=== PATIENT | female | born 1950 | race Caucasian/White ===

== ENCOUNTER 2019-03-10 00:18 | Emergency (ER) | payer OTHER ==
--- NOTE | 2019-03-10 00:19 | ER Report ---
History and Physical Time Seen By MD: 00:15 HPI/ROS CHIEF COMPLAINT: Mid back pain 2 days HISTORY OF PRESENT ILLNESS: 68-year-old female traveling [place] been traveling in a car for several days. She notes her back began to hurt 2 days ago. She recalls no specific injury. Patient notes increased pain and spasm. Tonight aggravated by breathing. Patient notes no fever, chills or shortness of breath. Patient denies history of heart disease. Patient denies leg swelling or calf pain. Patient's pain is aggravated by movement of her thoracic spine. Patient denies dysuria. Patient has a history of osteoporosis on preventative medication. She also has autoimmune urticaria. She is unable to take NSAIDs because tongue swelling. REVIEW OF SYSTEMS: Respiratory: No cough, no dyspnea. Cardiovascular: No chest pain, no palpitations. Gastrointestinal: No vomiting, no abdominal pain. Musculoskeletal: As above Allergies: Coded Allergies: ibuprofen (Verified Allergy, Severe, "SWOLLEN TONGUE", 03/10/19) Home Meds Active Scripts Methocarbamol (ROBAXIN-750) 750 Mg Tablet, 1 TAB PO TID PRN for muscle spasm relief, #20 Prov:RALPH BORJA DO 03/10/19 Ondansetron 4 Mg Odt (ONDANSETRON 4 MG ODT) 4 Mg Tab.rapdis, 4 MG PO Q6H PRN for NAUSEA/VOMITING, #12 TAB Prov:RALPH BORJA DO 03/10/19 Hydromorphone Hcl (DILAUDID) 2 Mg Tablet, 2 MG PO Q4H PRN for PAIN, #15 Prov:RALPH BORJA DO 03/10/19 Reviewed Nurses Notes: Yes Old Medical Records Reviewed: Yes Constitutional Vital Sign - Last 24 Hours 03/10/19 00:23 Temp 98.1 Pulse 71 Resp 18 B/P (MAP) 162/87 Pulse Ox 94 O2 Delivery Room Air Physical Exam General Appearance: The patient is alert, has no immediate need for airway protection and no current signs of toxicity. Vital signs stable, afebrile, pulse ox normal, moderate distress HEENT: Pupils equal and round no injection. TMs normal, oropharynx without redness or exudate Respiratory: Chest is non tender, lungs are clear to auscultation. Cardiac: regular rate and rhythm Gastrointestinal: Abdomen is soft and non tender, no masses, bowel sounds normal. Musculoskeletal: Neck: Neck is supple and non tender. Back: There is some tenderness in the midthoracic lower region. There is no redness, no rash, no tenderness or spasm. Extremities have full range of motion and are non tender. No edema, no calf tenderness Skin: No rashes or lesions. DIFFERENTIAL DIAGNOSIS: After history and physical exam differential diagnosis was considered for back pain including but not limited to muscular pain, herniated disc, spine fracture, intra-abdominal causes and urinary tract inf ection. Additionally,chest pain including but not limited to myocardial ischemia, pericarditis pulmonary embolus, chest wall pain, pleural inflammation and pulmonary infectious causes. Medical Decision Making Data Points Result Diagram: 03/10/19 0136 03/10/19 0136 Laboratory Hematology Test 03/10/19 01:36 White Blood Count 6.3 k/uL (4.5-11.0) Red Blood Count 4.00 M/uL (4.17-5.56) L Hemoglobin 13.2 g/dL (12.0-16.0) Hematocrit 38.6 % (34.0-47.0) Mean Corpuscular Volume 96.5 fL (80.0-96.0) H Mean Corpuscular Hemoglobin 33.0 pg (26.0-33.0) Mean Corpuscular Hemoglobin Concent 34.2 g/dL (32.0-36.0) Red Cell Distribution Width 12.3 % (11.5-14.5) Platelet Count 172 K/uL (150-450) Mean Platelet Volume 8.4 fL (7.2-11.1) Neutrophils (%) (Auto) 53.5 % (39.4-72.5) Lymphocytes (%) (Auto) 31.7 % (17.6-49.6) Monocytes (%) (Auto) 10.6 % (4.1-12.4) Eosinophils (%) (Auto) 3.1 % (0.4-6.7) Basophils (%) (Auto) 1.1 % (0.3-1.4) Nucleated RBC Relative Count (auto) 0.0 /100WBC Neutrophils # (Auto) 3.4 K/uL (2.0-7.4) Lymphocytes # (Auto) 2.0 K/uL (1.3-3.6) Monocytes # (Auto) 0.7 K/uL (0.3-1.0) Eosinophils # (Auto) 0.2 K/uL (0.0-0.5) Basophils # (Auto) 0.1 K/uL (0.0-0.1) Nucleated RBC Absolute Count (auto) 0.00 K/uL Erythrocyte Sedimentation Rate 23 mm/HOUR (0-30) Chemistry Test 03/10/19 01:36 Sodium Level 138 mmol/L (137-145) Potassium Level 3.7 mmol/L (3.5-5.0) Chloride Level 103 mmol/L (98-107) Carbon Dioxide Level 27 mmol/L (22-31) Blood Urea Nitrogen 13 mg/dl (7-18) Creatinine 0.70 mg/dl (0.52-1.04) Glomerular Filtration Rate Calc > 60.0 Random Glucose 108 mg/dl (75-110) Calcium Level 9.5 mg/dl (8.4-10.2) Total Bilirubin 0.4 mg/dl (0.2-1.3) Aspartate Amino Transf (AST/SGOT) 53 U/L (0-35) Alanine Aminotransferase (ALT/SGPT) 84 U/L (0-56) Alkaline Phosphatase 341 U/L (0-126) Troponin I < 0.012 ng/ml Total Protein 7.7 g/dl (6.3-8.2) Albumin 4.2 g/dl (3.5-5.0) Amylase Level 70 U/L (0-110) Lipase 220 U/L (23-300) Coagulation Test 03/10/19 01:36 D-Dimer Quantitative (PE/DVT) 0.28 ug/ml (0-0.50) Urinalysis Test 03/10/19 00:38 Urine Color Colorless Urine Clarity Clear Urine pH 7.0 pH (4.8-9.5) Urine Specific [place] 1.005 Urine Protein Negative mg/dL (NEGATIVE) Urine Glucose (UA) Negative mg/dL (NEGATIVE) Urine Ketones Negative mg/dL (NEGATIVE) Urine Blood Negative (NEGATIVE) Urine Nitrite Negative (NEGATIVE) Urine Bilirubin Negative (NEGATIVE) Urine Urobilinogen Negative mg/dL (0.2-1.9) Urine Leukocyte Esterase Negative (NEGATIVE) Urine RBC <1 /HPF (0-2/HPF) Urine WBC 1 /HPF (0-5/HPF) Urine Squamous Epithelial Cells None /LPF (</=FEW) Urine Bacteria Negative /HPF (NONE-FEW) Urine Mucus None /HPF (NONE-FEW) EKG/Imaging EKG Interpretation 12 lead EK 134 Rhythm: normal sinus rhythm [place]: normal QRS: normal ST segments: normal, no evidence of ischemia, no old EKGs for comparison Imaging X-ray: Two-view thoracic spine was obtained. I viewed the images myself on the PACS system. My interpretation of the images is: No fracture no dislocation or malalignment, no compression fracture. The radiologist interpretation had no clinically significant variation from this interpretation. Results: CT scan of the chest, abdomen and pelvis with IV contrast was obtained. The results of the study are CT of the chest, abdomen, and pelvis with contrast: Indication: Severe lower thoracic pain. Technique: Helical CT was performed through the chest, abdomen, and pelvis following IV contrast enhancement with 75 cc of Isovue-370. Multiplanar reconstructions are reviewed. One of the following dose optimization techniques was utilized in the performance of this exam: Automated exposure control; adjustment of the mA and/or kV according to the patient's size; or use of an iterative reconstruction technique. Specific details can be referenced in the facility's radiology CT exam operational policy. Comparison: Plain radiographs of the thoracic spine from earlier the same day. Findings: Lungs: There is a calcified granuloma in the right lower lobe. Mild linear atelectasis is observed at both bases. No parenchymal consolidation, volume loss, or mass is identified. Pleural spaces: There is no evidence of effusion, focal pleural thickening, calcification, soft tissue mass, or pneumothorax. Mediastinum/retroperitoneum: There is no evidence of soft tissue mass, lymph node enlargement, or fluid collection. Small calcified lymph nodes are present in the mediastinum, consistent with chronic granulomatous disease. The heart and pericardial soft tissues appear unremarkable. There is mild atherosclerotic calcification in the aortic arch and proximal abdominal aorta. There are no signs of aortic aneurysm or dissection in the thorax or abdomen. Liver: Normal in size, shape, and density. The venous structures appear unremarkable. Gallbladder and biliary tree: The gallbladder is normal in size and homogeneous in density. The bile ducts are not dilated. Pancreas: Normal in size, shape, and density. There are no signs of peripancreatic inflammation or fluid. Spleen: Normal in size, shape, and density. Adrenal glands: Within normal limits. Kidneys: Normal in size, shape, and density. There are no signs of urinary tract calculus or obstructive uropathy. Intestinal structures: There are postoperative changes in the distal colon. There are no signs of intestinal obstruction, focal dilatation, soft tissue mass, or inflammatory changes. Urinary bladder: Homogeneous and unremarkable. Pelvic structures: The uterus is absent. There is no evidence of mass, fluid, or inflammation in the pelvis. Ascites or fluid collections: None seen. Skeletal structures: There are mild degenerative changes in the thoracic and lumbar spine. No fracture, compression, or acute skeletal deformity is identified. No destructive skeletal lesions are identified. There is a small sclerotic focus at the anterolateral and of the right sixth rib, probably benign. There are no signs of bone destruction or expansion. IMPRESSION: No acute abnormality is identified in the chest, abdomen, or pelvis. The study was read by the radiologist. I viewed the images myself on the PACS system. ED Course/Re-evaluation Clinical Indication for ER IV: Hydration, IV Access ED Course Patient was admitted to an examination room. H&P was done. The differential diagnoses was considered. Patient with acute midthoracic back pain after riding in a car for several days. She recalls no specific traumatic injury. She's had never had back pain like this before. It's spreading from her back into her chest in the nose causing increased pain with breathing. She denies dysuria. A urinalysis performed which is unremarkable. Thoracic spine x-rays showed no compression fracture. Patient continued to have significant pain despite medication. A peripheral IV was established. Diagnostic laboratory studies were sent off. Patient has a normal troponin. D-dimer and white count. Her alkaline phosphatase and LFTs are mildly elevated. A CT scan of the chest, abdomen and pelvis is performed to rule out occult pathology. There were no significant findings on the CAT scan. Patient be discharged home on Dilaudid and Robaxin.. Patient advised to follow-up with her primary care doctor upon returning to [place]. 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 She develops tongue swelling with consumption of NSAIDs. Decision to Disposition Date: Mar 10, 2019 Decision to Disposition Time: 03:49 Depart Departure Latest Vital Signs Vital Signs Date Time Temp Pulse Resp B/P (MAP) Pulse Ox O2 Delivery O2 Flow Rate FiO2 03/10/19 00:23 98.1 71 18 162/87 94 Room Air Impression: Primary Impression: Thoracic back pain Additional Impressions: Elevated serum alkaline phosphatase level Abnormal liver function test Condition: Improved Disposition: HOME OR SELF-CARE New Scripts Methocarbamol (ROBAXIN-750) 750 Mg Tablet 1 TAB PO TID PRN for muscle spasm relief, #20 Prov: RALPH BORJA DO 03/10/19 Ondansetron 4 Mg Odt (ONDANSETRON 4 MG ODT) 4 Mg Tab.rapdis 4 MG PO Q6H PRN for NAUSEA/VOMITING, #12 TAB Prov: RALPH BORJA DO 03/10/19 Hydromorphone Hcl (DILAUDID) 2 Mg Tablet 2 MG PO Q4H PRN for PAIN, #15 Prov: RALPH BORJA DO 03/10/19 Patient Instructions: Thoracic Back Strain (ED) Additional Instructions: Apply heating pad to your back to the affected area Follow-up with your primary care doctor upon returning home Problem Qualifiers Primary Impression: Thoracic back pain Chronicity: acute Back pain laterality: midline Qualified Codes: M54.6 - Pain in thoracic spine RALPH BORJA DO Mar 10, 2019 00:19
[2019-03-10] MEDS ORDERED: ACET/HYDROC 5/325MG TH ER ONLY 2 TAB/BOTTLE PO ONE (00:25)
[2019-03-10] MEDS ORDERED: METHOCARBAMOL 500 MG TAB PO ONE (00:25)
[2019-03-10] MEDS ORDERED: APAP/HYDROCODONE 325/5 TAB PO ONE (00:25)
[2019-03-10] MEDS ORDERED: ONDANSETRON 4 MG ODT TABDP SL ONE (01:05)
[2019-03-10] MEDS ORDERED: fentaNYL CITR 100 MCG/2 ML AMP IVP ONE (01:25)
[2019-03-10] MEDS ORDERED: NS(*) 0.9% 1000 ML BAG 1,000 ML IV ONE (01:30)
[2019-03-10 01:57] LABS: PLATELET COUNT, AUTOMATED 172 K/uL (150-450)
--- NOTE | 2019-03-10 01:58 | RADIOLOGY IMAGING REPORT ---
FACILITY: [facility] [place] PATIENT NAME: Meagan Fabian : 1950 MR: [id number] V: [id number] EXAM DATE: ORDERING PHYSICIAN: RALPH BORJA TECHNOLOGIST: Location: [facility] Patient: Meagan Fabian : 1950 Visit/Account:[id number] Date of Sevice: 03/10/2019 THORACIC SPINE: Indication: Persistent pain. Technique: Frontal and lateral views were obtained. Comparison: None available. Findings: There is no evidence of fracture, subluxation, or compression deformity. There is minimal l evoscoliosis. There are no signs of disc space narrowing or osteophyte formation. There is uniform mi neralization. No paraspinal soft tissue abnormalities are identified. IMPRESSION: Negative thoracic spine. Report Dictated By: Carson Jane MD at 03/10/2019 1:48 AM Report E-Signed By: Carson Jane MD at 03/10/2019 1:50 AM WSN:[id number]
[2019-03-10] MEDS ORDERED: IOPAMIDOL 76% 100 ML INFUS BTL 100 ML ONE (02:33)
[2019-03-10] MEDS ORDERED: HYDROMORPHONE HCL 1 MG/ML SYRINGE IVP ONE (03:20)
--- NOTE | 2019-03-10 03:45 | RADIOLOGY IMAGING REPORT ---
FACILITY: [facility] - [place] PATIENT NAME: Meagan Fabian : 1950 MR: [id number] V: [id number] EXAM DATE: ORDERING PHYSICIAN: RALPH BORJA TECHNOLOGIST: Location: [facility] [place] Patient: Meagan Fabian : 1950 Visit/Account:[id number] Date of Sevice: 03/10/2019 CT of the chest, abdomen, and pelvis with contrast: Indication: Severe lower thoracic pain. Technique: Helical CT was performed through the chest, abdomen, and pelvis following IV contrast enha ncement with 75 cc of Isovue-370. Multiplanar reconstructions are reviewed. One of the following dose optimization techniques was utilized in the performance of this exam: Autom ated exposure control; adjustment of the mA and/or kV according to the patient's size; or use of an i terative reconstruction technique. Specific details can be referenced in the facility's radiology CT exam operational policy. Comparison: Plain radiographs of the thoracic spine from earlier the same day. Findings: Lungs: There is a calcified granuloma in the right lower lobe. Mild linear atelectasis is observed at both bases. No parenchymal consolidation, volume loss, or mass is identified. Pleural spaces: There is no evidence of effusion, focal pleural thickening, calcification, soft tissu e mass, or pneumothorax. Mediastinum/retroperitoneum: There is no evidence of soft tissue mass, lymph node enlargement, or flu id collection. Small calcified lymph nodes are present in the mediastinum, consistent with chronic gr anulomatous disease. The heart and pericardial soft tissues appear unremarkable. There is mild atherosclerotic calcification in the aortic arch and proximal abdominal aorta. There ar e no signs of aortic aneurysm or dissection in the thorax or abdomen. Liver: Normal in size, shape, and density. The venous structures appear unremarkable. Gallbladder and biliary tree: The gallbladder is normal in size and homogeneous in density. The bile ducts are not dilated. Pancreas: Normal in size, shape, and density. There are no signs of peripancreatic inflammation or fl uid. Spleen: Normal in size, shape, and density. Adrenal glands: Within normal limits. Kidneys: Normal in size, shape, and density. There are no signs of urinary tract calculus or obstruct marcin uropathy. Intestinal structures: There are postoperative changes in the distal colon. There are no signs of int estinal obstruction, focal dilatation, soft tissue mass, or inflammatory changes. Urinary bladder: Homogeneous and unremarkable. Pelvic structures: The uterus is absent. There is no evidence of mass, fluid, or inflammation in the pelvis. Ascites or fluid collections: None seen. Skeletal structures: There are mild degenerative changes in the thoracic and lumbar spine. No fractur e, compression, or acute skeletal deformity is identified. No destructive skeletal lesions are identi fied. There is a small sclerotic focus at the anterolateral and of the right sixth rib, probably to gn. There are no signs of bone destruction or expansion. IMPRESSION: No acute abnormality is identified in the chest, abdomen, or pelvis. Report Dictated By: Carson Jane MD at 03/10/2019 3:12 AM Report E-Signed By: Carson Jane MD at 03/10/2019 3:37 AM WSN:[id number]
[2019-03-10] MEDS ORDERED: ONDANSETRON 4 MG ODT TH SL ONE (03:55)
[2019-03-10] MEDS ORDERED: HYDROmorphone 2 MG TAB TH 2 TAB/BOTTLE PO ONE (03:55)
[2019-03-10] MEDS ORDERED: METH-543 PO (03:56)
[2019-03-10] MEDS ORDERED: ONDA4TAB9 PO (03:56)
[2019-03-10] MEDS ORDERED: HYDR2TAB74 PO (03:56)
[2019-03-10 04:00] VITALS: BP 121/68
--- NOTE | 2019-03-10 06:30 | EKG ---
FACILITY: [facility] PATIENT NAME: YI TAMAYO : [id number] MR: [id number] V: [id number] EXAM DATE: ORDERING PHYSICIAN: RALPH BORJA TECHNOLOGIST: JULISSA Amaya Reason : Blood Pressure : / mmHG Vent. Rate : 059 BPM Atrial Rate : 059 BPM P-R Int : 144 ms QRS Dur : 090 ms QT Int : 426 ms P-R-T Axes : 075 073 074 degrees QTc Int : 421 ms Sinus bradycardia Otherwise normal ECG No previous ECGs available Confirmed by OSMIN CURRAN ([id number]) on 03/10/2019 6:34:33 AM Referred By: Confirmed By:OSMIN CURRAN
== END 2019-03-10 04:20 | disposition home or self-care (01) ==
LOC: ER 00:22
DX: M54.6 Pain in thoracic spine (principal); R74.8 Abnormal levels of other serum enzymes; R94.5 Abnormal results of liver function studies
CPT/HCPCS: 71260; 72070; 74177; 81001; 82150; 83690; 84484; 85025; 85379; 85651; 93005; 96361; 96374; 96375; 99284; A9270; J1170; J3010; J7030; Q9967; S0119; 82040; 82247; 82310; 82374; 82435; 82565; 82947; 84075; 84132; 84155; 84295; 84450; 84460; 84520